=== PATIENT | male | born 1980 | race Two or more races ===

== ENCOUNTER 2017-11-02 18:03 | Observation (INO) | payer MEDICAID ==
[~2017-11-02] VITALS: Ht 172.7 cm; Wt 67.2 kg
[2017-11-02] MEDS ORDERED: FLUO20CA19 PO (18:31)
[2017-11-02] MEDS ORDERED: ALPR1TAB6 PO (18:31)
[2017-11-02] MEDS ORDERED: PROP10TA PO (18:31)
[2017-11-02] MEDS ORDERED: METH10TA6 PO (18:31)
[2017-11-02] MEDS ORDERED: TRAZ50TA18 PO (18:31)
[2017-11-02 18:50] LABS: BASOPHILS # (AUTO) 0.02 x10^3/uL (0-0.1); BASOPHILS % (AUTO) 0 % (0-1); EOSINOPHILS # (AUTO) 0.07 x10^3/uL (0-0.4); EOSINOPHILS % (AUTO) 1 % (1-7); LYMPHOCYTES # (AUTO) 2.38 x10^3/uL (1-3.4); LYMPHOCYTES % (AUTO) 39 % (22-44); MD NO; MEAN CORPUSCULAR HEMOGLOBIN 30.1 pg (27.5-34.5); MEAN CORPUSCULAR HGB CONC 34.7 g/dL (33.2-36.2); MEAN CORPUSCULAR VOLUME 86.8 fL (81-97); MEAN PLATELET VOLUME 8.7 fL (7.4-10.4); MONOCYTES % (AUTO) 7 % (2-9); NEUTROPHILS # (AUTO) 3.18 x10^3/uL (1.8-6.8); NEUTROPHILS % (AUTO) 53 % (42-75); PLATELET COUNT 189 x10^3/uL (130-400); RED BLOOD COUNT 5.49 x10^6/uL (4.38-5.82); RED CELL DISTRIBUTION WIDTH 13.3 % (9.4-14.8)
[2017-11-02 18:57] LABS: ANION GAP 8 mmol/L (5-15); CALCIUM 9.7 mg/dL (8.5-10.1); CHLORIDE 106 mmol/L (98-107); CREATININE 1.03 mg/dL (0.7-1.3)
[2017-11-02 19:06] LABS: FREE T4 (FREE THYROXINE) 2.84 ng/dL (0.76-1.46)
[2017-11-02 19:08] LABS: THYROID STIMULATING HORMONE < 0.005 mIU/L (0.358-3.740)
[2017-11-02] MEDS ORDERED: METOPROLOL TARTRATE 50 MG TABLET ONE (19:51)
[2017-11-02] MEDS ORDERED: METOPROLOL TARTRATE 50 MG TABLET PO ONE (20:00)
[2017-11-02] MEDS ORDERED: SODIUM CHLORIDE 0.9% 1,000 ML IV SCH (20:39)
[2017-11-02] MEDS: PROPRANOLOL 10 MG TABLET PO SCH (21:00)
[2017-11-02] MEDS ORDERED: ALPRazolam 1MG TABLET PO PRN (21:00)
[2017-11-02] MEDS ORDERED: TRAZODONE 50MG TABLET PO SCH (21:00)
[2017-11-02 21:57] VITALS: BP 109/67
[2017-11-03] MEDS ORDERED: ACETAMINOPHEN 325 MG TABLET PO PRN (00:30)
[2017-11-03 02:31] VITALS: BP 117/66
[2017-11-03 07:34] VITALS: BP 104/60
[2017-11-03] MEDS: PROPRANOLOL 10 MG TABLET PO SCH (08:35)
[2017-11-03] MEDS ORDERED: FLUOXETINE HCL 20 MG CAPSULE PO SCH (09:00)
[2017-11-03 14:28] VITALS: BP 107/63
[2017-11-03] MEDS ORDERED: PROP10TA PO (16:09)
== END 2017-11-03 17:10 | disposition home or self-care (01) ==
LOC: EDBD 18:03 → ED 20:09 → SUATTDRO 20:38 → EDIP 20:56 → 3NW 20:59 → 4EST 11-03 09:30 → DCLOUNGE 11-03 17:03
PROVIDERS: ADMIT Hospitalist; ATTEND Hospitalist
DX: E05.90 Thyrotoxicosis, unspecified without thyrotoxic crisis or storm (principal); F41.1 Generalized anxiety disorder; R00.0 Tachycardia, unspecified; F32.9 Major depressive disorder, single episode, unspecified; Z87.891 Personal history of nicotine dependence
CPT/HCPCS: 36415; 71045; 76536; 80048; 82040; 84439; 84443; 85025; 93005; 96360; 96361; 99285; G0378; J7030